=== PATIENT | female | born 1975 | race Caucasian/White ===

== ENCOUNTER 2021-09-24 11:23 | Emergency (ER) | payer MEDICAID ==
[~2021-09-24] VITALS: Ht 152.4 cm; Wt 54.5 kg
[2021-09-24 12:04] LABS: BASOPHILS % 0.7 % (0.0-2.0); EOSINOPHILS % 0.8 % (0.0-5.0); HEMATOCRIT. 36.6 % (36.0-48.0); HEMOGLOBIN. 12.4 g/dL (12.0-16.0); LYMPHOCYTES % 21.3 % (20.0-50.0); MEAN CORPUSCULAR VOLUME 100.2 fL (81.0-99.0); MEAN PLATELET VOLUME 8.8 fl (7.4-10.4); MONOCYTES % 4.7 % (2.0-8.0); NEUTROPHILS % 72.5 % (40.0-76.0); PLATELET 286 x1000/uL (130-400); RED BLOOD CELL COUNT 3.65 mill/uL (4.2-5.4); RED CELL DISTRIBUTION WIDTH 13.5 % (11.6-14.6)
[2021-09-24 12:13] LABS: CHLORIDE 105 mEq/L (98-107)
[2021-09-24 12:14] LABS: PROTHROMBIN TIME 10.9 sec (9.6-11.0)
[2021-09-24 12:19] LABS: HCG SCREEN NEGATIVE
[2021-09-24] MEDS ORDERED: METHYLPREDNISOLONE SOD SUCC 125 MG/2 ML VIAL IV STA (12:19)
[2021-09-24] MEDS ORDERED: ALBUTEROL (0.083%) 2.5MG/3ML NEB HHN STA (12:19)
[2021-09-24] MEDS ORDERED: IPRATROPIUM BROMIDE (0.02%) 0.5MG/2.5ML NEB HHN STA (12:19)
[2021-09-24 12:26] LABS: CREATINE KINASE 677 IU/L (26-192)
[2021-09-24] MEDS ORDERED: POTASSIUM CHLORIDE 20MEQ TABLET SR PO ONE (12:30)
[2021-09-24 12:34] LABS: CLARITY URINE CLEAR (CLEAR); COLOR URINE YELLOW (YELLOW); KETONES URINE 1+ (NEGATIVE); LEUKOCYTE ESTERASE URINE NEGATIVE (NEGATIVE); NITRITE URINE NEGATIVE (NEGATIVE); OCCULT BLOOD URINE NEGATIVE (NEGATIVE); PH URINE 6.5 (4.5-8.0); PROTEIN URINE NEGATIVE (NEGATIVE); SPECIFIC GRAVITY URINE 1.005 (1.005-1.030); UROBILINOGEN URINE 0.2 E.U./dL (0.2-1.0)
[2021-09-24] MEDS ORDERED: DIAZEPAM 5 MG TABLET PO ONE (15:30)
[2021-09-24 15:48] VITALS: BP 141/63
[2021-09-24] MEDS ORDERED: ALBU6.7H15 INH (16:02)
[2021-09-24] MEDS ORDERED: METH-773 MT (16:02)
[2021-09-24] MEDS ORDERED: P20 MT (16:02)
== END 2021-09-24 16:20 | disposition home or self-care (01) ==
LOC: ER 11:23
DX: J45.901 Unspecified asthma with (acute) exacerbation (principal); M54.12 Radiculopathy, cervical region; M54.40 Lumbago with sciatica, unspecified side; R42 Dizziness and giddiness; E11.9 Type 2 diabetes mellitus without complications; I10 Essential (primary) hypertension; E78.00 Pure hypercholesterolemia, unspecified
CPT/HCPCS: 36415; 70450; 71045; 72125; 72131; 80053; 81003; 81025; 82550; 83690; 83880; 84484; 84703; 85025; 85610; 93005; 94644; 96374; 99285; J2930; Z7610